=== PATIENT | male | born 1950 | race Two or more races ===

== ENCOUNTER 2021-12-30 05:31 | Day surgery (SDC) | payer OTHER | END 2021-12-30 09:30 | disposition home or self-care (01) | LOC: AMB-ENDOS 05:31 | PROVIDERS: ATTEND Colon & Rectal Surgery | DX: K62.4 Stenosis of anus and rectum (principal); K91.30 Postprocedural intestinal obstruction, unspecified as to partial versus complete; K64.1 Second degree hemorrhoids; I10 Essential (primary) hypertension ==

== ENCOUNTER 2022-04-27 06:00 | Day surgery (SDC) | payer OTHER | END 2022-04-27 11:30 | disposition home or self-care (01) | LOC: AMB-ENDOS 06:00 | PROVIDERS: ATTEND Colon & Rectal Surgery | DX: K91.858 Other complications of intestinal pouch (principal); K63.89 Other specified diseases of intestine; K91.30 Postprocedural intestinal obstruction, unspecified as to partial versus complete; I10 Essential (primary) hypertension ==

== ENCOUNTER 2022-08-30 07:26 | Outpatient (CLI) | payer OTHER | END 2022-08-30 07:30 | disposition home or self-care (01) | LOC: RX STUDY 07:26 | PROVIDERS: ATTEND Colon & Rectal Surgery | DX: K57.20 Diverticulitis of large intestine with perforation and abscess without bleeding (principal) ==

== ENCOUNTER 2022-11-09 15:41 | Inpatient (IN) | payer OTHER ==
[~2022-11-09] VITALS: Ht 177.8 cm; Wt 79.8 kg
[2022-11-10] MEDS ORDERED: ATORVAS PO (14:59)
[2022-11-10] MEDS ORDERED: LOSART PO (14:59)
[2022-11-11] MEDS ORDERED: FINASTERIDE5 MG PO (08:25)
[2022-11-11] MEDS ORDERED: TAMS0.4C PO (08:26)
[2022-11-16] MEDS ORDERED: LATANOPROST2.5 ML (14:21)
[2022-11-16] MEDS ORDERED: ATORVASTATIN CA10 MG (14:21)
[2022-11-16] MEDS ORDERED: LOSARTAN POTASS50 MG (14:21)
== END 2022-11-19 13:34 | disposition home or self-care (01) | DRG 331 ==
LOC: SURG 11-16 08:15 → O/R 11-16 08:36 → SURG 11-16 13:00
PROVIDERS: ADMIT Colon & Rectal Surgery; ATTEND Colon & Rectal Surgery
PROC: 0DBE4ZZ Excision of Large Intestine, Percutaneous Endoscopic Approach (ICD-10-PCS; principal; 2022-11-16 13:00)
DX: Z43.3 Encounter for attention to colostomy (principal); K62.4 Stenosis of anus and rectum; I10 Essential (primary) hypertension

== ENCOUNTER 2023-05-14 08:19 | Inpatient (IN) | payer OTHER ==
[~2023-05-14] VITALS: Ht 177.8 cm; Wt 79.8 kg
[~2023-05-14 08:19] MED LIST: ATORVAS PO; ATORVASTATIN CA10 MG; FINASTERIDE5 MG PO; LATANOPROST2.5 ML; LOSART PO; LOSARTAN POTASS50 MG; TAMS0.4C PO
[2023-05-14 10:09] LABS: URINE APPEARANCE Cloudy; URINE BILIRRUBIN Negative (NEGATIVE); URINE BLOOD Negative; URINE COLOR Yellow; URINE GLUCOSE Negative (NEGATIVE); URINE LEUKOCYTE Negative; URINE NITRATE Negative; URINE PROTEIN 30 (NEGATIVE)
[2023-05-14 10:11] LABS: HEMATOCRIT 42.1 % (39.0-48.0); HEMOGLOBIN 14.5 g/dL (13-16.00); MEAN CELL VOLUME 83.3 fL (80.0-100.00); MEAN CORPUSCULAR HEMOGLOBIN 28.7 pg (27.00-32.0); MEAN CORPUSCULAR HGB CONC 34.5 g/dl (32.0-36.0); PLATELET COUNT 208 K/uL (150-450); RED BLOOD COUNT 5.06 M/uL (4.00-6.00); RED CELL DISTRIBUTION WIDTH 14.6 % (11.5-14.5)
[2023-05-14 10:14] LABS: URINE BACTERIA 204.1 uL (0.0-1933); URINE EPITHELIAL CELLS 11.1 uL (0.0-38.8); URINE RBC 3.1 uL (0.0-20.8); URINE WBC 26.1 uL (0.0-23.2)
[2023-05-14 10:37] LABS: INR 1.1; PARTIAL THROMBOPLASTIN TIME 26.9 SECONDS (22.0-34.0); PROTHROMBIN TIME 11.5 SECONDS (9.0-11.5)
[2023-05-14 10:50] LABS: BILIRUBIN TOTAL 2.32 mg/dL (0.3-1.2); CALCIUM 9.4 mg/dL (8.5-10.1); CREATININE SERUM 1.08 mg/dL (0.70-1.30); GFR 66.84; GLOBULINA 3.9 G/DL (2.4-3.5); TOTAL PROTEIN 7.9 gm/dL (6.4-8.2)
[2023-05-14 11:16] LABS: POTASSIUM 2.45 mEq/L (3.5-5.1)
[2023-05-15 07:27] LABS: PH,URINE 5.5 (5.0-8.0); URINE APPEARANCE Clear; URINE BILIRRUBIN Negative (NEGATIVE); URINE BLOOD Negative; URINE COLOR Yellow; URINE GLUCOSE Negative (NEGATIVE); URINE LEUKOCYTE Small; URINE NITRATE Negative; URINE PROTEIN Negative (NEGATIVE); URINE UROBILINOGEN 0.2 E.U./dl
[2023-05-15 07:30] LABS: URINE BACTERIA 70.5 uL (0.0-1933); URINE EPITHELIAL CELLS 4.6 uL (0.0-38.8); URINE WBC 97.3 uL (0.0-23.2)
[2023-05-15 07:30] LABS: HEMATOCRIT 40.4 % (39.0-48.0); HEMOGLOBIN 14.1 g/dL (13-16.00); MEAN CELL VOLUME 82.7 fL (80.0-100.00); MEAN CORPUSCULAR HEMOGLOBIN 28.7 pg (27.00-32.0); MEAN CORPUSCULAR HGB CONC 34.8 g/dl (32.0-36.0); PLATELET COUNT 211 K/uL (150-450); RED BLOOD COUNT 4.89 M/uL (4.00-6.00); RED CELL DISTRIBUTION WIDTH 14.6 % (11.5-14.5)
[2023-05-15 07:39] LABS: URINE RBC 1.2 uL (0.0-20.8)
[2023-05-15 07:48] LABS: INR 1.09; PARTIAL THROMBOPLASTIN TIME 28.2 SECONDS (22.0-34.0); PROTHROMBIN TIME 11.4 SECONDS (9.0-11.5)
[2023-05-15 07:53] LABS: ERYTHROCYTE SEDIMENTATION RATE 7 mm/hr
[2023-05-15 08:13] LABS: ALBUMIN 3.4 gm/dL (3.4-5.0); ALKALINE PHOSPHATASE 57 U/L (50-136); ALT/SGPT 18 U/L (12-78); AST/SGOT 13 U/L (15-37); BILIRUBIN TOTAL 2.49 mg/dL (0.3-1.2); BILIRUBIN,CONJUGATED 0.43 mg/dL (0.0-0.2); BILIRUBIN,UNCONJUGATED 2.06 mg/dL (0.0-0.6); BLOOD UREA NITROGEN 12 mg/dL (7-18); BUN CREA RATIO 14 (7.0-25.0); CALCIUM 8.6 mg/dL (8.5-10.1); CARBON DIOXIDE 27 mEq/L (21-32); CHLORIDE 110 mmol/L (98-107); CHOL HDL RATIO 2.9 (0-5.0); CHOLESTEROL 156 mg/dL (0-200); CREATININE SERUM 0.86 mg/dL (0.70-1.30); GFR 86.93; GLOBULINA 2.8 G/DL (2.4-3.5); GLUCOSE FASTING 100 mg/dL (65-100); HDL 53 mg/dl (40-60); LDL 93 mg/dl (0-130); OSMOLALITY SERUM 287 MOSM/KG (275-295); SODIUM 144 mmol/L (136-145); TOTAL PROTEIN 6.2 gm/dL (6.4-8.2); TRIGLYCERIDES 51 mg/dL (0-150); VLDL 10 (0-39)
[2023-05-15 08:14] LABS: ANION GAP 10 (10.0-20.0); C-REACTIVE PROTEIN < 0.29 MG/DL (0.00-0.29)
[2023-05-15 08:36] LABS: POTASSIUM 2.83 mEq/L (3.5-5.1)
[2023-05-16 07:36] LABS: CALCIUM 8.7 mg/dL (8.5-10.1); CREATININE SERUM 0.95 mg/dL (0.70-1.30); GFR 77.5; MAGNESIUM 2.1 mg/dL (1.8-2.4); PHOSPHOROUS 2.6 mg/dL (2.5-4.9); POTASSIUM 3.2 mEq/L (3.5-5.1)
[2023-05-17 07:32] LABS: HEMATOCRIT 44.7 % (39.0-48.0); HEMOGLOBIN 15.1 g/dL (13-16.00); MEAN CELL VOLUME 83.5 fL (80.0-100.00); MEAN CORPUSCULAR HEMOGLOBIN 28.2 pg (27.00-32.0); MEAN CORPUSCULAR HGB CONC 33.7 g/dl (32.0-36.0); PLATELET COUNT 222 K/uL (150-450); RED BLOOD COUNT 5.36 M/uL (4.00-6.00); RED CELL DISTRIBUTION WIDTH 14.9 % (11.5-14.5)
[2023-05-17 08:22] LABS: CALCIUM 8.6 mg/dL (8.5-10.1); CREATININE SERUM 0.94 mg/dL (0.70-1.30); GFR 78.45; MAGNESIUM 2.1 mg/dL (1.8-2.4); PHOSPHOROUS 2.4 mg/dL (2.5-4.9); POTASSIUM 3.26 mEq/L (3.5-5.1)
[2023-05-18 08:39] LABS: CALCIUM 9.4 mg/dL (8.5-10.1); CREATININE SERUM 0.99 mg/dL (0.70-1.30); GFR 73.89; MAGNESIUM 2.3 mg/dL (1.8-2.4); PHOSPHOROUS 3.3 mg/dL (2.5-4.9); POTASSIUM 3.17 mEq/L (3.5-5.1)
[2023-05-19 06:40] LABS: HEMATOCRIT 39.8 % (39.0-48.0); HEMOGLOBIN 13.9 g/dL (13-16.00); MEAN CELL VOLUME 82.3 fL (80.0-100.00); MEAN CORPUSCULAR HEMOGLOBIN 28.7 pg (27.00-32.0); MEAN CORPUSCULAR HGB CONC 34.9 g/dl (32.0-36.0); PLATELET COUNT 182 K/uL (150-450); RED BLOOD COUNT 4.84 M/uL (4.00-6.00); RED CELL DISTRIBUTION WIDTH 15.5 % (11.5-14.5)
[2023-05-19 07:13] LABS: CALCIUM 8.9 mg/dL (8.5-10.1); CREATININE SERUM 0.94 mg/dL (0.70-1.30); GFR 78.45; MAGNESIUM 2.1 mg/dL (1.8-2.4); PHOSPHOROUS 2.3 mg/dL (2.5-4.9); POTASSIUM 3.45 mEq/L (3.5-5.1)
== END 2023-05-20 13:10 | disposition home or self-care (01) | DRG 390 ==
LOC: ER 08:19 → MEDI 19:18 → SURH 19:18
PROVIDERS: General Practice; Internal Medicine Geriatric Medicine; Specialist; ADMIT Colon & Rectal Surgery; ATTEND Colon & Rectal Surgery
PROC: BW21YZZ Computerized Tomography (CT Scan) of Abdomen and Pelvis using Other Contrast (ICD-10-PCS; 2023-05-15)
PROC: 4A12X4Z Monitoring of Cardiac Electrical Activity, External Approach (ICD-10-PCS; 2023-05-15)
PROC: 02HV33Z Insertion of Infusion Device into Superior Vena Cava, Percutaneous Approach (ICD-10-PCS; 2023-05-17)
PROC: 0D7P8ZZ Dilation of Rectum, Via Natural or Artificial Opening Endoscopic (ICD-10-PCS; principal; 2023-05-18)
DX: K56.699 Other intestinal obstruction unspecified as to partial versus complete obstruction (principal); K62.4 Stenosis of anus and rectum; E87.6 Hypokalemia; E78.5 Hyperlipidemia, unspecified; Z20.822 Contact with and (suspected) exposure to COVID-19; I11.9 Hypertensive heart disease without heart failure

== ENCOUNTER 2024-04-24 05:45 | Day surgery (SDC) | payer OTHER ==
[~2024-04-24 05:45] MED LIST changes: +ALDACTONE100 MG PO; +ATORVASTATIN CA10 MG PO; +COZAAR50 MG PO; +FAMOTIDINE20 MG PO; +MAGNESIUM CHLOR70 MG PO; +PANTOPRAZOLE SO40 MG PO; +PEPCID AC20 MG PO; +POTASSIUM CHLOR8 MEQ PO; +QUESTRAN LIGHT210 GM PO
[2024-04-24] MEDS ORDERED: DIPHENHYDRAMINE HCL 50 MG/ML VIAL 1ML IV ONE (12:15)
[2024-04-24] MEDS ORDERED: fentaNYL CITRATE 50 MCG/ML AMPUL IV PUSH ONE (12:15)
[2024-04-24] MEDS ORDERED: MIDAZOLAM HCL 2 MG/2 ML VIAL IV ONE (12:15)
== END 2024-04-24 14:15 | disposition home or self-care (01) ==
LOC: AMB-ENDOS 05:45
PROVIDERS: ATTEND Colon & Rectal Surgery
DX: C18.9 Malignant neoplasm of colon, unspecified (principal); K62.4 Stenosis of anus and rectum; K57.32 Diverticulitis of large intestine without perforation or abscess without bleeding; K56.699 Other intestinal obstruction unspecified as to partial versus complete obstruction

== ENCOUNTER 2025-01-16 05:43 | Day surgery (SDC) | payer OTHER ==
[2025-01-16] MEDS ORDERED: fentaNYL CITRATE 50 MCG/ML AMPUL IV PUSH ONE (10:30)
[2025-01-16] MEDS ORDERED: DIPHENHYDRAMINE HCL 50 MG/ML VIAL 1ML IV ONE (10:30)
[2025-01-16] MEDS ORDERED: MIDAZOLAM HCL 2 MG/2 ML VIAL IV ONE (10:30)
== END 2025-01-16 11:05 | disposition home or self-care (01) ==
LOC: AMB-ENDOS 05:43
PROVIDERS: ATTEND Colon & Rectal Surgery
DX: K62.4 Stenosis of anus and rectum (principal); K57.30 Diverticulosis of large intestine without perforation or abscess without bleeding

== ENCOUNTER 2025-04-17 17:48 | Emergency (ER) | payer OTHER ==
[~2025-04-17] VITALS: Ht 177.8 cm; Wt 73.5 kg
[2025-04-17 18:04] VITALS: BP 115/71; O2SAT 98
[2025-04-17] MEDS ORDERED: ONDANSETRON HCL 2 MG/ML VIAL IV ONE (18:45)
[2025-04-17] MEDS ORDERED: 0.9 % SODIUM CHLORIDE 1,000 ML IV SCH (18:45)
[2025-04-17] MEDS ORDERED: FAMOTIDINE/PF 20 MG/2 ML VIAL IV ONE (18:45)
[2025-04-17] MEDS ORDERED: ONDANSETRON HCL 2 MG/ML VIAL ONE (19:05)
[2025-04-17] MEDS ORDERED: FAMOTIDINE/PF 20 MG/2 ML VIAL ONE (19:06)
[2025-04-17 19:23] LABS: BASO % 0.8 % (0.1-1.2); EOS # 0.29 (0.04-0.54); EOS % 4.4 % (0.7-7.0); LYMPH # 1.77 (1.18-3.74); LYMPH % 27.0 % (19.3-53.1); MEAN PLATELET VOLUME 10.40 fl (9.4-12.4); MONO # 0.56 (0.24-0.82); MONO % 8.5 % (4.7-12.5); NEUT # 3.88 (1.56-6.13); NEUT % 59.1 % (34.0-71.1); RED CELL DISTRIBUTION WIDTH 12.7 % (11.6-14.4)
[2025-04-17 19:25] LABS: ERYTHROCYTE SEDIMENTATION RATE 5 mm/hr (0-20)
[2025-04-17 20:03] LABS: INR 1.1
[2025-04-17 20:08] LABS: ALT/SGPT 26 U/L (12-78); AST/SGOT 22 U/L (15-37); BILIRUBIN TOTAL 2.09 mg/dL (0.3-1.2); BUN CREA RATIO 24 (7.0-25.0); CREATININE SERUM 0.91 mg/dL (0.70-1.30); GFR 81.00; GLOBULINA 3.2 G/DL (2.4-3.5); GLUCOSE FASTING 124 mg/dL (65-100); OSMOLALITY SERUM 286 MOSM/KG (275-295)
[2025-04-17 21:28] LABS: URINE APPEARANCE Clear; URINE BILIRRUBIN Negative (NEGATIVE); URINE BLOOD Negative; URINE COLOR Yellow; URINE GLUCOSE Negative (NEGATIVE); URINE KETONE Negative (NEGATIVE); URINE LEUKOCYTE Negative; URINE NITRATE Negative; URINE PROTEIN Trace (NEGATIVE); URINE UROBILINOGEN 0.2 E.U./dl
[2025-04-17 21:32] LABS: URINE BACTERIA 4.7 uL (0.0-1933); URINE EPITHELIAL CELLS 1.5 uL (0.0-38.8)
[2025-04-17 21:59] LABS: URINE CAST 0.14 uL (0.0-1.40); URINE RBC 1.6 uL (0.0-20.8); URINE WBC 1.3 uL (0.0-23.2)
[2025-04-17] MEDS ORDERED: DICY20TA PO (22:53)
[2025-04-17] MEDS ORDERED: MIRALAX17 GM PO (22:53)
== END 2025-04-17 23:14 | disposition home or self-care (01) ==
LOC: ER 17:48
PROVIDERS: Student in an Organized Health Care Education/Training Program
DX: R10.9 Unspecified abdominal pain (principal); I10 Essential (primary) hypertension; E78.00 Pure hypercholesterolemia, unspecified; N40.0 Benign prostatic hyperplasia without lower urinary tract symptoms
CPT/HCPCS: 36415; 93005; 99283; J2405; J3490; J7030

== ENCOUNTER 2025-05-28 07:00 | Day surgery (SDC) | payer OTHER ==
[~2025-05-28 07:00] MED LIST changes: +DICY20TA PO; +MIRALAX17 GM PO
[2025-05-28] MEDS ORDERED: MIDAZOLAM HCL 2 MG/2 ML VIAL IV ONE (11:30)
[2025-05-28] MEDS ORDERED: fentaNYL CITRATE 50 MCG/ML AMPUL IV PUSH ONE (11:30)
[2025-05-28] MEDS ORDERED: DIPHENHYDRAMINE HCL 50 MG/ML VIAL 1ML IV ONE (11:30)
== END 2025-05-28 12:05 | disposition home or self-care (01) ==
LOC: AMB-ENDOS 07:00
PROVIDERS: ATTEND Colon & Rectal Surgery
DX: K62.4 Stenosis of anus and rectum (principal); K57.32 Diverticulitis of large intestine without perforation or abscess without bleeding